=== PATIENT | male | born 1975 | race Caucasian/White ===

== ENCOUNTER 2016-05-24 14:36 | Emergency (ER) | payer MEDICAID ==
[~2016-05-24] VITALS: Ht 165.1 cm; Wt 83.8 kg
[2016-05-24] MEDS ORDERED: IBUPROFEN 200 MG TABLET ONE (15:07)
[2016-05-24] MEDS ORDERED: IBUPROFEN 200 MG TABLET PO ONE (15:30)
[2016-05-24 15:40] LABS: HEMOGLOBIN 15.9 g/dL (13.7-18.0)
[2016-05-24] MEDS ORDERED: HYDROmorphone 1 MG/ML, 1ML ONE (15:50)
[2016-05-24] MEDS ORDERED: LIDOCAINE 1%, 20ML ONE (15:51)
[2016-05-24] MEDS ORDERED: LIDOCAINE 1%, 20ML SQ ONE (16:00)
[2016-05-24] MEDS ORDERED: HYDROmorphone 1 MG/ML, 1ML IM ONE (16:00)
[2016-05-24 18:27] VITALS: BP 128/72
== END 2016-05-24 18:29 | disposition home or self-care (01) ==
LOC: ED 18:20
DX: L03.115 Cellulitis of right lower limb (principal)
CPT/HCPCS: 20605; 36415; 73610; 85025; 85651; 86140; 87070; 87205; 89051; 89060; 96372; 99285; J1170